=== PATIENT | male | born 1950 | race Hispanic/Latino ===

== ENCOUNTER → 2019-04-03 | Day surgery (SDC) | payer BC, MEDICARE ==
[2019-03-30 13:46] LABS: BASOPHILS % 0.6 % (0.0-1.0); EOSINOPHILS # (AUTO) 0.1 (0.0-0.4); EOSINOPHILS % 1.5 % (0.0-6.0); HEMATOCRIT 47.7 % (38.2-49.6); HEMOGLOBIN 16.4 g/dL (14.0-18.0); LYMPHOCYTES # (AUTO) 1.6 (1.0-3.2); MEAN CORPUSCULAR HEMOGLOBIN 32.4 pg (28-32); MEAN CORPUSCULAR HGB CONC 34.4 g/dL (31-35); MEAN CORPUSCULAR VOLUME 94.3 fL (81-99); MONOCYTES # (AUTO) 0.4 (0.2-0.8); MONOCYTES % 7.9 % (4.4-11.3); NEUTROPHILS # (AUTO) 3.3 (2.1-6.9); NEUTROPHILS % 60.8 % (38.7-80.0); PLATELET COUNT 175 x10e3/uL (140-360); RED BLOOD COUNT 5.06 x10e6/uL (4.3-5.7); RED CELL DISTRIBUTION WIDTH 12.8 % (11.7-14.4)
[~2019-04-03] MED LIST: DEXTROSE 5% 250ML 250 ML IV ONE; DIOVAN160 MG PO; FAMOTIDINE20 MG PO; FLOMAX0.4 MG PO; HYDROCHLOROTHIA25 MG PO; LIDOCAINE HCL 2% LOCAL INJ 5 ML SDV VIAL INJ ONE; MIDAZOLAM HCL 2 MG/2 ML VIAL ONE; NOVOLOG100 UNITS1 SC; PEPCID AC10 MG PO; PRAVASTATIN SOD20 MG PO; PREVACID15 M1 PO; PROPOFOL IV EMULSION 10 MG/ML 50 ML VIAL ONE; TOUJEO SOL300 UNIT/1 SC; TRULICITY0.75 MG/0. INJ
[2019-04-03 11:10] VITALS: BP 129/84
--- NOTE | 2019-04-03 13:04 | Operative Report ---
DATE OF PROCEDURE: 04/03/2019 SURGEON: Rolly Fontenot MD PROCEDURES: EGD with biopsies and colonoscopy with polypectomy and biopsies. INDICATION FOR EGD: Acid reflux. INDICATIONS FOR COLONOSCOPY: Chronic diarrhea. MEDICATIONS: The patient was done under MAC, please see anesthesiologist's note. PROCEDURE IN DETAIL: With the patient in left lateral decubitus position, a flexible fiberoptic Olympus gastroscope was introduced into the esophagus under direct visualization without any difficulty. There was some patchy erythema noted in distal esophagus. Minute tongues of velvety red mucosa were noted to extend proximally from the GE junction, and biopsies were obtained to rule out Grey. The scope was then advanced with ease into the stomach. Mucosa overlying the antrum and the distal body revealed some patchy intense erythema and moderate edema, and biopsies were obtained and sent to stain for H. pylori. A moderate amount of retained undigested food stuff was noted in the stomach precluding visualization of the proximal body and partly the fundus. The pylorus was intubated with ease and the scope was advanced all the way to the second portion of the duodenum. Biopsies were obtained from the proximal second portion and duodenal bulb to rule out sprue. The scope was then withdrawn back into the stomach and retroflexed and whatever was visualized the fundus appeared to be within normal limits. The cardia appeared to be within normal limits. The scope was then straightened out, it was subsequently withdrawn, and the patient tolerated the procedure well. IMPRESSION: 1. Distal esophagitis, mild. 2. Rule out Grey esophagus. 3. Gastritis, biopsied, biopsies sent to stain for Helicobacter pylori. 4. Moderate amount of retained undigested food stuff in stomach precluding visualization of the proximal body and partly the fundus reflecting some gastroparesis. 5. Rule out sprue. PLAN: Follow up histology. Initiate Protonix 40 mg 1 p.o. q.a.m. before meals. The patient was then turned around and after adequate lubrication of the anal canal, flexible fiberoptic Olympus colonoscope was inserted into the rectum with ease and advanced all the way to the cecum. An approximately 6 mm sessile polyp was removed per cold snare polypectomy from the cecum. An additional polyp was removed per cold biopsy forceps. The ileocecal valve was intubated and biopsies were obtained from the terminal ileum. The scope was then withdrawn back into the colon. It was then withdrawn slowly. An approximately 1.2 cm sessile polyp, proximal ascending colon, removed per snare electrocautery and site was hemoclipped x2. An additional polyp in the ascending colon was removed per cold biopsy forceps. One polyp was removed in the transverse colon per snare electrocautery and additional polyp was removed per cold biopsy forceps. One polyp in the proximal descending colon was removed per cold snare polypectomy and 2 polyps in the sigmoid were removed per hot biopsy forceps. Mild patchy inflammatory changes were noted in the left colon and rectum, and random biopsies were obtained. Some diverticular disease was noted in the sigmoid colon. The scope was then retroflexed into the distal rectum and small internal hemorrhoids were noted, none of which was actively bleeding. The scope was then straightened out and it was subsequently withdrawn after securing an adequate stool specimen that was sent for the appropriate stool studies. The patient tolerated the procedure well. IMPRESSION: 1. Cecal polyps x2, one cold snared and one cold biopsied. 2. Ascending colon polyps x2, one approximately 1.2 cm in size, sessile, hot snared, hemoclipped x2 and the second polyp was removed per cold biopsy forceps. 3. Transverse colon polyps x2, one hot snared and one cold biopsied. 4. Descending colon polyp, cold snared. 5. Mild patchy left-sided colitis. 6. Sigmoid colon polyps x2, hot biopsied. 7. Diverticulosis. 8. Internal hemorrhoids, none actively bleeding. PLAN: Follow up histology. Follow up stool studies. Initiate Bentyl 10 mg 1 p.o. t.i.d. VSL#3 one p.o. daily. The patient might benefit from a followup colonoscopy in 1 to 2 years. MD YANDEL Quiroga/EBONY /[id number] cc: Alli De
[2019-04-03 13:07] LABS: WBC,FECAL (FECAL LACTOFERRIN) NEGATIVE (NEGATIVE)
[2019-04-04 15:45] LABS: C DIFFICILE TOXIN A&B AMP PROB NEGATIVE (NEGATIVE)
== END | disposition home or self-care (01) ==
LOC: OR 08:26
PROVIDERS: ATTEND Internal Medicine Gastroenterology
DX: K51.50 Left sided colitis without complications (principal); D12.2 Benign neoplasm of ascending colon; D12.0 Benign neoplasm of cecum; D12.3 Benign neoplasm of transverse colon; D17.5 Benign lipomatous neoplasm of intra-abdominal organs; K29.70 Gastritis, unspecified, without bleeding; K31.84 Gastroparesis; K21.0 Gastro-esophageal reflux disease with esophagitis; K22.8 Other specified diseases of esophagus; K57.30 Diverticulosis of large intestine without perforation or abscess without bleeding; K64.8 Other hemorrhoids; E11.9 Type 2 diabetes mellitus without complications; R00.1 Bradycardia, unspecified; G47.33 Obstructive sleep apnea (adult) (pediatric); I10 Essential (primary) hypertension; Z01.810 Encounter for preprocedural cardiovascular examination; Z01.812 Encounter for preprocedural laboratory examination; Z79.4 Long term (current) use of insulin; Z68.30 Body mass index [BMI] 30.0-30.9, adult
CPT/HCPCS: 36415 ×2; 43239; 45380; 45384; 45385; 82948; 83630; 83993; 85025; 87045; 87177; 87328; 87493; 93005; J2001; J2250; J2704; J7070; 44391

== ENCOUNTER 2021-02-16 10:00 | Outpatient (RCR) | payer BC ==
[~2021-02-16 10:00] MED LIST changes: -DEXTROSE 5% 250ML 250 ML IV ONE; -LIDOCAINE HCL 2% LOCAL INJ 5 ML SDV VIAL INJ ONE; -MIDAZOLAM HCL 2 MG/2 ML VIAL ONE; -PROPOFOL IV EMULSION 10 MG/ML 50 ML VIAL ONE
== END 2021-02-19 ==
LOC: PT 10:00
PROVIDERS: ATTEND Specialist
DX: S39.012D Strain of muscle, fascia and tendon of lower back, subsequent encounter (principal); M62.81 Muscle weakness (generalized)